=== PATIENT | female | born 1975 | race Caucasian/White ===

== ENCOUNTER → 2019-03-05 | Outpatient (CLI) | payer OTHER ==
--- NOTE | 2019-03-05 11:22 | Diagnostic Imaging Report ---
EXAM: CT Chest WITHOUT intravenous contrast 03/05/2019 9:27 AM INDICATION: COPD COMPARISON: None TECHNIQUE: Chest was scanned utilizing a multidetector helical scanner from the lung apex through the level of the adrenal glands without administration of IV contrast. Coronal and sagittal reformations were obtained. Routine protocol was performed. IV CONTRAST: None RADIATION DOSE: Total DLP: 564.96 mGy*cm. Dose modulation, iterative reconstruction, and/or weight based adjustment of the mA/kV was utilized to reduce the radiation dose to as low as reasonably achievable. COMPLICATIONS: None FINDINGS: LINES/ TUBES: None. LUNGS AND AIRWAYS: The central airways are patent. No focal consolidation. No pulmonary edema. Right lower lobe 5 mm pulmonary nodule (series 302 image 65). Right upper lobe 3 mm nodule (series 302 image 44). PLEURA: The pleural spaces are clear. HEART AND MEDIASTINUM: The thyroid gland is normal. No supraclavicular, mediastinal, or hilar lymphadenopathy. The heart is not enlarged. No pericardial effusion.. Minimal scattered atherosclerotic calcifications of the coronary arteries. UPPER ABDOMEN: Limited non-contrast views of the upper abdomen show no abnormality within the visualized liver, spleen, pancreas, or kidneys. The adrenal glands are normal. BONES: No acute osseous injury. No suspicious lytic or blastic lesions. SOFT TISSUES: Unremarkable. IMPRESSION: No acute cardiopulmonary process. Pulmonary nodules as above measuring up to 5 mm. Given the patient's history of smoking, follow-up chest CT is optional at 12 months. Signed by: Lucho Stewart MD on 03/05/2019 11:19 AM
== END ==
LOC: CT 09:07
PROVIDERS: ATTEND Internal Medicine
DX: R91.8 Other nonspecific abnormal finding of lung field (principal); Z87.891 Personal history of nicotine dependence
CPT/HCPCS: 71250

== ENCOUNTER → 2019-03-12 | Outpatient (CLI) | payer OTHER ==
[~2019-03-12] MED LIST: ALBUTEROL SULF 0.083% NEB SOLN 3 ML NEB ONE
== END ==
LOC: RESP 14:02
PROVIDERS: ATTEND Internal Medicine
DX: R06.09 Other forms of dyspnea (principal)
CPT/HCPCS: 94060; 94640; 94727; 94729